=== PATIENT | female | born 1930 | race Caucasian/White ===

== ENCOUNTER 2016-12-11 19:48 | Emergency (ER) | payer MEDICARE, OTHER ==
[2015-10-22 12:08] VITALS: BMI 23.5
[~2016-12-11 19:48] MED LIST: ADVAIR HFA 230-12 GM INH; ATIVAN0.5 MG PO; LEVAQUIN750 MG PO; LEXAPRO10 MG PO; LIPITOR10 MG PO; MUCINEX600 MG PO; NATURAL SENNA8.6 MG PO; NORVASC5 MG PO; OMEPRAZOLE40 MG PO; PLAVIX75 MG PO; PROVENTIL/2.5 MG/3 M INH; ROBITUSSIN AC (10 M1 PO; STERAPRED 5MG 125 MG PO; SYNTHROID50 MCG PO
== END 2016-12-11 22:56 | disposition home or self-care (01) ==
LOC: D.ER 19:48
DX: S52.021A Displaced fracture of olecranon process without intraarticular extension of right ulna, initial encounter for closed fracture (principal); W05.0XXA Fall from non-moving wheelchair, initial encounter; Y93.89 Activity, other specified; Y92.019 Unspecified place in single-family (private) house as the place of occurrence of the external cause; J44.9 Chronic obstructive pulmonary disease, unspecified; I10 Essential (primary) hypertension; K21.9 Gastro-esophageal reflux disease without esophagitis; E03.9 Hypothyroidism, unspecified

== ENCOUNTER 2016-12-13 10:03 | Day surgery (SDC) | payer MEDICARE, OTHER ==
[~2016-12-13] VITALS: Ht 160 cm; Wt 60.3 kg
[2016-12-13 11:05] LABS: ANION GAP 6.1 mmol/L (8-16); CALCIUM 9.9 mg/dL (8.5-10.1); CARBON DIOXIDE 35.2 mmol/L (21.0-32.0); CREATININE - SERUM 0.9 mg/dL (0.6-1.3); POTASSIUM - SERUM 4.3 mmol/L (3.5-5.1)
[2016-12-13 11:20] LABS: HEMOGLOBIN 11.3 g/dL (12-16); LYMPHOCYTES 12.3 % (15-50); MCH 27.4 pg (26.0-34.0); MCHC 30.5 g/dL (31.0-37.0); MCV 89.6 fL (80.0-100.0); NEUTROPHILS 77.2 % (40-80); RBC 4.13 10x6/uL (4.00-5.40); RDW 15.4 % (11.5-14.5); WBC 10.9 10x3/uL (4.8-10.8)
[2016-12-13 11:23] LABS: PLATELET COUNT 267 10x3/uL (130-400)
[2016-12-13] MEDS ORDERED: NORCO 7.5/325 T1 TA1 PO (11:49)
[2016-12-13] MEDS ORDERED: ULTRAM50 MG PO (11:49)
[2016-12-13] MEDS ORDERED: MORPHINE SUL20 MG/ML PO ×2 (11:50→11:51)
[2016-12-13] MEDS ORDERED: PREDNISONE10 MG PO (11:51)
[2016-12-13] MEDS ORDERED: BISCOLAX10 MG/SUPP RC (11:52)
[2016-12-13] MEDS ORDERED: ZOFRAN4 MG PO (11:52)
[2016-12-13 11:57] VITALS: BP 125/67; Ht 160 cm; Wt 60.3 kg
[2016-12-13] MEDS ORDERED: HYDROCODONE-APA1 TAB PO (17:24)
--- NOTE | 2016-12-13 17:44 | NUR ---
ANESTHESIA ORDERED [facility]ONE[facility] UPDRAFT. UPDRAFT ADMIN IN RR
--- NOTE | 2016-12-13 17:56 | NUR ---
ANESTHESIA ADVIDES THE PATIENT WAS 92% O2 SAT ON OXYGEN PRE OP. THE PATIENT WAS OK TO DISCHARGE FROM PACU WITH O2 SAT IN THE 90S ON O2
--- NOTE | 2016-12-16 11:00 | OP ---
PATIENT NAME: MASSIEL BLANCO MEDICAL RECORD: [id number] :29 LOCATION:[facility] ADMISSION DATE: SURGEON: KARLA SAVAGE MD DATE OF OPERATION: 12/13/2016 PREOPERATIVE DIAGNOSIS: Displaced right olecranon fracture. POSTOPERATIVE DIAGNOSIS: Displaced right olecranon fracture. PROCEDURE PERFORMED: Right olecranon open reduction internal fixation using a Biomet olecranon plate. SURGEON: Hussein Savage MD ANESTHESIA: General with a block for postop pain. CONDITION: She tolerated the procedure well and was transferred to the recovery room in stable condition at termination of the procedure. INDICATIONS: This is an 86-year-old female with a significantly displaced olecranon fracture. Was felt that the only way she kept good function of this elbow was to fix it. Discussed risks, benefits, and alternatives including nonunion, infection, malunion, failure of the repair. They understood and wished to proceed. OPERATIVE REPORT: The patient was taken to the operating room and placed in supine position. General anesthesia was obtained. She did have a block in the preop holding area. In the operating room, she was placed in a lateral position with her right elbow up. She then was prepped and draped in standard fashion. She received antibiotics per protocol. Posterior incision was made. This was taken down. The hematoma was removed from the fracture site. It was then copiously irrigated. The fracture fragment was then reduced. I then placed an olecranon plate placing a screw distally holding the plate in to position and then feeling screws proximal to distal, verifying its reduction and alignment. Once this was accomplished, and I was checking the laterals as well. Once this appeared to be well aligned, I copiously irrigated. I did take her to a range of motion. I did not feel any catching or clicking of the screws. She had smooth range of motion. I therefore copiously irrigated ____ was closed with #1 Vicryl followed by 2-0 Vicryl, then trenton. She was placed in a posterior splint, awakened and transferred to the recovery room in stable condition, having tolerated the procedure well. We will keep her in splints and see her back in the office in about 2 weeks. TRANSINT:[id number] Voice Confirmation ID: [id number] DOCUMENT ID: [id number] KARLA SAVAGE MD at 1100 CC: [id number] DICTATION DATE: 12/13/16 [address] BROKER: 12/13/16 2357 [facility] [place] 12/13/16 [id number] [place] [address]
== END 2016-12-13 19:51 | disposition home or self-care (01) ==
LOC: D.OPS 10:03 → D.PAN 12:30 → D.OPS 12:30
PROVIDERS: Anesthesiology
DX: S52.021A Displaced fracture of olecranon process without intraarticular extension of right ulna, initial encounter for closed fracture (principal)